=== PATIENT | male | born 1980 | race Caucasian/White ===

== ENCOUNTER 2022-07-19 12:52 | Outpatient (CLI) | payer MEDICAID, OTHER | END 2022-07-19 12:53 | disposition critical access hospital (66) | LOC: EMS 12:52 | DX: S99.911A Unspecified injury of right ankle, initial encounter (principal); V18.4XXA Pedal cycle driver injured in noncollision transport accident in traffic accident, initial encounter; Y93.55 Activity, bike riding; Y92.414 Local residential or business street as the place of occurrence of the external cause | CPT/HCPCS: A0425; A0427 ==

== ENCOUNTER 2022-07-19 13:08 | Emergency (ER) | payer MEDICAID, OTHER ==
[2022-07-19] MEDS ORDERED: PROPOFOL 200 MG/20 ML VIAL IVP STA ×2 (13:19→14:21)
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
--- NOTE | 2022-07-19 14:00 | XRAY Report ---
PROCEDURE: Ankle 3 View RT INDICATIONS: ankle inj TECHNIQUE: 3 views of the ankle were acquired. COMPARISON: None FINDINGS: Severe fracture-dislocation injury of the distal tibia and distal fibula. There is nearly complete an terior and medial dislocation of the tibia with respect to the talus. There are associated largely di splaced fractures of the medial and posterior malleoli. There is also a largely displaced and angulat ed fracture of the lateral malleolus. The fractures all extend into the ankle mortise which is comple tely disrupted. IMPRESSION: Severe fracture-dislocation injury of the ankle with trimalleolar fracture pattern and complete fibul ar and tibial dislocation with severe disruption of the mortise. Reviewed by: Keyur Tran MD on 07/19/2022 1:59 PM PDT Approved by: Keyur Tran MD on 07/19/2022 1:59 PM PDT Station ID: [id number]
[2022-07-19 14:53] VITALS: BP 126/81
--- NOTE | 2022-07-19 15:31 | XRAY Report ---
PROCEDURE: Tib/Fib RT INDICATIONS: post reduction TECHNIQUE: 2 views of the tibia and fibula were acquired. COMPARISON: Same-day radiograph. FINDINGS: Improved alignment of the previously seen fracture-dislocation injuries of both the fibula and tibia, although there is persistent posterior displacement of the distal fibular fracture fragmen t and medial displacement of the tibia with significant widening of the medial ankle mortise. IMPRESSION: Improved fracture fragment alignment still with disruption and medial widening of the ankle mortise a nd posterior displacement of the dominant distal fibular fracture fragment. Reviewed by: Keyur Tran MD on 07/19/2022 3:30 PM PDT Approved by: Keyur Tran MD on 07/19/2022 3:30 PM PDT Station ID: [id number]
== END 2022-07-19 15:21 | disposition home or self-care (01) ==
LOC: EDUNIT# → ED 13:08
DX: S82.851A Displaced trimalleolar fracture of right lower leg, initial encounter for closed fracture (principal); V18.4XXA Pedal cycle driver injured in noncollision transport accident in traffic accident, initial encounter
CPT/HCPCS: 27818; 99284

== ENCOUNTER 2022-07-26 10:55 | Day surgery (SDC) | payer MEDICAID ==
[~2022-07-26 10:55] MED LIST: ACETAMINOPHEN 500 MG TABLET PO ONE; CEFAZOLIN 2G/50ML 0.9% NS 2 GM/50 ML BAG IV ONE; CELECOXIB 100 MG CAPSULE PO ONE
[2022-07-26] MEDS ORDERED: LACTATED RINGERS 1,000 ML IV ONE ×2 (11:00→16:26)
[2022-07-26] MEDS ORDERED: VANCOMYCIN 1 GM VIAL ONE (11:54)
--- NOTE | 2022-07-26 11:55 | ANESTHESIA ---
Pre-Anesthesia VS, & Labs - Diagnosis right trimalleolar ankle fracture - Procedure ORIF right ankle fracture Vital Signs: Temp Pulse Resp BP Pulse Ox O2 Flow Rate 37.2 C 76 16 124/67 100 0 07/26/22 11:14 07/26/22 11:14 07/26/22 11:14 07/26/22 11:14 07/26/22 11:14 07/26/22 11:14 Height: 6 ft Weight (kg): 72.57 kg Body Mass Index: 21.7 BMI Classification: Normal - NPO >8 hours Home Medications and Allergies Allergies/Adverse Reactions: Allergies Allergy/AdvReac Type Severity Reaction Status Date / Time No Known Drug Allergies Allergy Verified 07/19/22 13:17 Anes History & Medical History - Anesthetic History Anesthesia Complications: reports: No previous complications - Medical History Cardiovascular: reports: None Pulmonary: reports: None Gastrointestinal: reports: None Urinary: reports: None Neuro: reports: None Musculoskeletal: reports: None Endocrine/Autoimmune: reports: None Blood Disorders: reports: None Skin: reports: None Smoking Status: Never smoker Psychosocial: reports: No issues indicated History of Cancer?: No - Surgical History Eyes Ears Nose Throat (EENT): reports: Myringotomy (tubes) Exam General: Alert, Oriented x3, Cooperative, No acute distress Dental: WNL Mouth Openin Fingerbreadth Neck Mobility: Normal Mallampati classification: II Thyromental Distance: 4-6 cm Mental/Cognitive Status: Alert/Oriented X3, Normal for patient Plan Anesthesia Type: General Consent for Procedure(s) Verified and Reviewed: Yes Code Status: Attempt Resuscitation ASA classification: 1-Healthy patient Is this case an emergency?: No
[2022-07-26] MEDS ORDERED: HYDROmorphone 0.5 MG/0.5 ML SYRINGE IVP PRN (11:57)
[2022-07-26] MEDS ORDERED: fentaNYL 100 MCG/2 ML VIAL IVP PRN (11:57)
[2022-07-26] MEDS ORDERED: MORPHINE 2 MG/ML CARPUJECT IVP PRN (11:57)
[2022-07-26] MEDS ORDERED: NALOXONE 0.4 MG/ML VIAL IVP PRN (11:57)
[2022-07-26] MEDS ORDERED: ONDANSETRON 4 MG/2 ML VIAL IVP PRN (11:57)
[2022-07-26] MEDS ORDERED: ATROPINE ABBOJECT 1 MG/10 ML SYRINGE IVP PRN (11:57)
[2022-07-26] MEDS ORDERED: LACTATED RINGERS 1,000 ML IV SCH (12:00)
[2022-07-26] MEDS ORDERED: MIDAZOLAM 2 MG/2 ML VIAL ONE ×2 (12:02→12:41)
[2022-07-26] MEDS ORDERED: PROPOFOL 200 MG/20 ML VIAL IVP ONE ×2 (12:02→15:51)
[2022-07-26] MEDS ORDERED: DEXAMETHASONE 4 MG/ML VIAL ONE (12:06)
[2022-07-26] MEDS ORDERED: ROPIVACAINE 0.5% PF 20 ML VIAL ONE (12:12)
[2022-07-26] MEDS ORDERED: fentaNYL 100 MCG/2 ML VIAL ONE (14:16)
[2022-07-26] MEDS ORDERED: LIDOCAINE MPF 2%-EPI 1:200000 20 ML VIAL ONE (14:55)
[2022-07-26] MEDS ORDERED: BUPIVACAINE 0.5% PF 10 ML VIAL ONE (14:56)
[2022-07-26] MEDS ORDERED: VANCOMYCIN 1 GM VIAL MC ONE ×2 (15:07)
[2022-07-26] MEDS ORDERED: BUPIVACAINE 0.5% PF 10 ML VIAL IM ONE ×2 (15:08)
[2022-07-26] MEDS ORDERED: LIDOCAINE MPF 2%-EPI 1:200000 10 ML VIAL SUBQ ONE ×2 (15:09)
[2022-07-26] MEDS ORDERED: HYDROmorphone 1 MG/ML CARPUJECT ONE (15:13)
[2022-07-26] MEDS ORDERED: ONDANSETRON 4 MG/2 ML VIAL ONE ×2 (15:41→17:03)
[2022-07-26] MEDS ORDERED: ACETAMINOPHEN 500 MG TABLET PO PRN (16:16)
[2022-07-26] MEDS ORDERED: oxyCODONE 5 MG TABLET PO PRN (16:16)
[2022-07-26] MEDS ORDERED: ONDANSETRON ODT 4 MG TABLET TL PRN (16:16)
[2022-07-26] MEDS ORDERED: CELECOXIB 100 MG CAPSULE PO PRN (16:16)
--- NOTE | 2022-07-26 16:22 | OPERATIVE REPORT ---
Operative Report - General Procedure Date: 07/26/22 Planned Procedure: Open reduction internal fixation right ankle fractures Pre-Op Diagnosis: Displaced trimalleolar fracture dislocation right ankle Procedure Performed: Open reduction internal fixation medial and lateral malleolus and repair of distal syndesmosis right ankle Post Op Diagnosis: Same as preoperative diagnosis - Procedure Note Primary Surgeon: Simon Vides MD Secondary Surgeon: Chanelle YANEZ Anesthesia Provider: Lorraine Carlos CRNA Anesthesia Technique: General LMA, Regional block Estimated Blood Loss (mL): 50 Indications: This is a 42-year-old gentleman with a closed trimalleolar fracture dislocation of right ankle sustained about a week ago. He had closed reduction of the dislocation and application of a sugar-tong short leg fiberglass splint. He has been nonweightbearing and elevating the right ankle to reduce swelling. He did have a 5 mm fracture blister over the posterior medial ankle, otherwise skin intact. The ankle was swollen with mild ecchymosis, soft compartments. He is relatively healthy and active. His routine radiographs showed a small posterior malleolar fracture fragment, lateral malleolus fracture beginning at and extending proximal to the ankle mortise. There was a small transverse fracture of the medial malleolus just below the joint line. An informed consent was obtained at the office. Patient was in agreement to surgical repair of his right ankle fractures. Findings: And the fracture of the medial malleolus was at the joint line and was attached to the deltoid ligament. This was an intra-articular fracture. The talus appeared intact. On the lateral side the fracture was at and above the ankle mortise. There was disruption of the distal syndesmosis, anterior inferior tibiofibular ligament. There was associated fracture of the distal syndesmosis on the fibular side, measuring 2 x 2 mm. This small fragment was totally unattached with soft tissue and was within the joint, easily extracted when the incision was made. I did not see any definite talar defects from a lateral arthrotomy or medial arthrotomy. Complications: None - Other Other Information/Narrative: The patient was brought to the operating room. He was placed in the supine position with the right leg on a foam bolster. A hip bolster was placed beneath the right buttock to internally rotate the right leg. A pneumatic tourniquet was applied to the proximal right thigh over cast padding. The right lower extremity was prepped and draped in a sterile manner in the usual fashion. Sterile drape was applied to the C arm image intensifier. A timeout procedure was performed by the entire operating room team and all were in agreement. The lateral side of the ankle was approached first with a longitudinal incision placed over the posterior aspect of the fibula. Care was taken to identify the superficial branch of the peroneal nerve which was present proximally; this branch was protected during the exposure. The fracture hematoma was removed with a curette and saline lavage. The fracture was temporarily reduced with a sterile bump beneath the ankle. Temporary fixation was achieved with bone clamps and an intramedullary 2.0 mm K wire inserted from tip of lateral malleolus. The Arthrex 6-hole locking plate was applied. The plate was secured to bone and held in place with push pins. Nonlocking cortical screw was inserted proximally. The intramedullary fibular pin was removed and 4 locking lateral malleolar screws were inserted through the plate. It should be mentioned that the first screw to be inserted was a lag screw inserted from posterior to anterior, perpendicular to the fracture site with a 3.5 cortical screw. Additional screws were placed within the plate, achieving good fixation. The small fracture fragment involving the distal fibular syndesmosis on the fibular side of the syndesmosis had to be removed because it was small, unattached and within the joint. The anterior inferior tibiofibular ligament was identified. A fiber tack suture was inserted into the lateral malleolus and suture weaved through the ligament and tied to stabilize the distal syndesmosis with the ankle in neutral dorsiflexion. Intraoperative C arm x-rays were obtained, biplanar images which showed intact ankle mortise. Next a medial longitudinal incision was made, exposing the ankle joint through the fracture. The hematoma was removed. The fracture bed was exposed, cleaned of hematoma with curette and lavage. The fracture had created a medial arthrotomy which was enlarged to expose the joint. The medial malleolus was reduced with a small bone clamp. This bone clamp was placed into the metaphysis through a small drill hole and then to the tip of the medial malleolus. The cannulated cancellous 4.0 millimeter screw set was utilized, guidepin inserted. The C-arm image intensifier was utilized again and show satisfactory alignment. The cannulated drill was inserted to make an entry hole and the 50 mm 4.0 cancellous lag screw was inserted across the medial malleolar fracture, achieving good fixation. Intraoperative stress views of the syndesmosis was obtained and the ankle mortise was stable to external rotation. The wounds were thoroughly irrigated. A tourniquet was utilized throughout the case; tourniquet time was 2 hours. Vancomycin powder was placed in the fibular incision, 1 g. The subcutaneous tissues were closed with 2 oh strata fix and 3 oh for the subcuticular closure. In addition westley were used on the lateral incision and Dermabond on the medial incision. Xeroform, fluffs, well-padded dressing applied with multiple rolls of soft roll. A 4 inch sugar-tong splint was applied with the ankle in neutral dorsiflexion. He received 2 g of Ancef intravenously, tolerated procedure well
--- NOTE | 2022-07-26 16:54 | ANESTHESIA POST OP EVALUATION ---
Anesthesia Post Eval - Post Anesthesia Eval Vitals: Last Vital Signs Temp 37.1 C 07/26/22 16:46 Pulse 91 07/26/22 16:46 Resp 20 07/26/22 16:46 BP 126/77 07/26/22 16:46 Pulse Ox 99 07/26/22 16:46 O2 Flow Rate 0 07/26/22 11:14 CV Function Including HR & BP: Stable Pain Control: Satisfactory Nausea & Vomiting: Negative Mental Status: Patient Participates Respiratory Status: Airway Patent Hydration Status: Satisfactory Anesthesia Complications: None
[2022-07-26] MEDS ORDERED: LACTATED RINGERS 1,000 ML ONE (18:56)
[2022-07-26 21:39] VITALS: BP 122/64
== END 2022-07-26 22:24 | disposition home or self-care (01) ==
LOC: SDS 10:55 → MS2 17:38 → SDS 22:24
PROVIDERS: ATTEND Orthopaedic Surgery
DX: S82.851A Displaced trimalleolar fracture of right lower leg, initial encounter for closed fracture (principal); S93.431A Sprain of tibiofibular ligament of right ankle, initial encounter; V18.4XXA Pedal cycle driver injured in noncollision transport accident in traffic accident, initial encounter
CPT/HCPCS: 27814; 27829; A9270; J0690; J1170; J2795; J3370; J7120; Q0162

== ENCOUNTER 2022-09-07 15:51 | Outpatient (CLI) | payer MEDICAID ==
--- NOTE | 2022-09-07 16:21 | XRAY Report ---
PROCEDURE: Ankle 3 View RT INDICATIONS: RIGHT ANKLE FRACTURE TECHNIQUE: 3 views of the ankle were acquired. COMPARISON: 07/19/2022 FINDINGS: Bones: Lateral fibular compression plate with several transverse screws, and along the medial malleol ar screw are present. The hardware is intact. Medial malleolar fracture plane is less well seen. Post erior malleolar fracture is visible. The ankle mortise is normally aligned. Soft tissues: No tibiotalar joint effusion. Achilles tendon appears normal. IMPRESSION: 1. Anatomic alignment of the trimalleolar fracture fragments with reestablishment of the ankle mortis e post-ORIF. Hardware is intact. Reviewed by: Ainsley Interiano MD on 09/07/2022 4:20 PM PST Approved by: Ainsley Interiano MD on 09/07/2022 4:20 PM PST Station ID: [id number]
== END 2022-09-07 15:52 | disposition home or self-care (01) ==
LOC: DI.WOS 15:51
PROVIDERS: ATTEND Orthopaedic Surgery
DX: S82.851D Displaced trimalleolar fracture of right lower leg, subsequent encounter for closed fracture with routine healing (principal)

== ENCOUNTER 2022-10-18 12:08 | Outpatient (CLI) | payer MEDICAID ==
[2022-10-18 12:20] LABS: BASOPHILS # (AUTO) 0.1 10^3/uL (0.0-0.1); BASOPHILS % (AUTO) 0.8 %; EOSINOPHILS # (AUTO) 0.3 10^3/uL (0.0-0.7); EOSINOPHILS % (AUTO) 3.8 %; HCT - HEMATOCRIT 45.7 % (42.0-52.0); HGB - HEMOGLOBIN 15.1 g/dL (14.0-18.0); LYMPHOCYTES # (AUTO) 1.6 10^3/uL (1.5-3.5); MEAN CORPUSCULAR HEMOGLOBIN 30.9 pg (27.0-31.0); MEAN CORPUSCULAR VOLUME 93.6 fL (80.0-94.0); MEAN PLATELET VOLUME 10.7 fL (7.4-11.4); MONOCYTES # (AUTO) 0.5 10^3/uL (0.0-1.0); MONOCYTES % (AUTO) 6.9 %; NEUTROPHILS # (AUTO) 4.1 10^3/uL (1.5-6.6); NEUTROPHILS % (AUTO) 63.3 %; PLT - PLATELET COUNT 211 10^3/uL (130-450); RED BLOOD COUNT 4.88 10^6/uL (4.70-6.10); RED CELL DISTRIBUTION WIDTH 12.5 % (12.0-15.0); WHITE BLOOD COUNT 6.5 x10^3/uL (4.8-10.8)
[2022-10-18 12:38] LABS: ALBUMIN 4.9 g/dL (3.2-5.5); ALBUMIN/GLOBULIN RATIO 1.6 (1.0-2.2); ALKALINE PHOSPHATASE 46 IU/L (42-121); ALT ALANINE AMINOTRANSFERASE 26 IU/L (10-60); AST ASPARTATE AMINOTRANSFERASE 19 IU/L (10-42); BILIRUBIN,TOTAL 1.3 mg/dL (0.2-1.0); BUN - BLOOD UREA NITROGEN 14 mg/dL (6-20); CALCIUM 9.5 mg/dL (8.5-10.3); CARBON DIOXIDE - CO2 30 mmol/L (21-32); CHLORIDE 99 mmol/L (101-111); CHOL/HDL RATIO 3.7 (<5.0); CHOLESTEROL 235 mg/dL; CREATININE 0.8 mg/dL (0.6-1.2); GFR - MDRD 105 (>89); GLUCOSE 96 mg/dL (70-100); HDL CHOLESTEROL 63 mg/dL; LDL CHOLESTEROL,CALCULATED 148 mg/dL; LDL/HDL RATIO 2.3 (<3.6); SODIUM 137 mmol/L (135-145); TRIGLYCERIDES 119 mg/dL; VLDL CHOLESTEROL 24 mg/dL
== END 2022-10-18 12:09 | disposition home or self-care (01) ==
LOC: LAB 12:08
PROVIDERS: ATTEND Physician Assistant
DX: Z00.00 Encounter for general adult medical examination without abnormal findings (principal); Z13.220 Encounter for screening for lipoid disorders
CPT/HCPCS: 36415; 80053; 80061; 83721; 85025